=== PATIENT | female | born 1940 | race Caucasian/White ===

== ENCOUNTER 2023-05-24 18:07 | Emergency (ER) | payer MEDICARE ==
[~2023-05-24] VITALS: Ht 157.4 cm; Wt 56.2 kg
[2023-05-24] MEDS ORDERED: AMLODIPINE BESY10 MG PO (21:49)
[2023-05-24] MEDS ORDERED: METFORMIN HYDR500 MG PO (21:50)
[2023-05-24] MEDS ORDERED: ATORVASTATIN CA40 M1 PO (21:50)
[2023-05-24] MEDS ORDERED: TELMISARTAN40 M1 PO (21:50)
== END 2023-05-24 23:04 | disposition short-term general hospital (02) ==
LOC: ED 18:07
DX: S02.2XXA Fracture of nasal bones, initial encounter for closed fracture (principal); S12.110A Anterior displaced Type II dens fracture, initial encounter for closed fracture; I10 Essential (primary) hypertension; W01.10XA Fall on same level from slipping, tripping and stumbling with subsequent striking against unspecified object, initial encounter; Y93.01 Activity, walking, marching and hiking; Y92.89 Other specified places as the place of occurrence of the external cause; Y99.8 Other external cause status